=== PATIENT | male | born 1995 | race Caucasian/White ===

== ENCOUNTER 2016-11-19 21:07 | Emergency (ER) | payer BC ==
[~2016-11-19] VITALS: Ht 175.3 cm; Wt 77.3 kg
[~2016-11-19 21:07] MED LIST: PREDNISONE20 MG PO
[2016-11-19 21:10] VITALS: BP 158/83; TEMP 98.4
[2016-11-19] MEDS ORDERED: AMOXICILLIN 8751 TAB PO (22:33)
[2016-11-19 22:56] VITALS: PULSE 74
== END 2016-11-19 22:56 | disposition home or self-care (01) ==
LOC: COL.ER 21:07
DX: S60.475A Other superficial bite of left ring finger, initial encounter (principal); W55.01XA Bitten by cat, initial encounter; Y92.009 Unspecified place in unspecified non-institutional (private) residence as the place of occurrence of the external cause